=== PATIENT | male | born 1945 | race Caucasian/White ===

== ENCOUNTER 2021-09-24 15:05 | Observation (INO) | payer MEDICARE, SELFPAY ==
[2021-09-24] VITALS (11 sets, daily range): BP systolic 120–170; BP diastolic 78–105; PULSE 69–148; RESP 18–23; TEMP 36.4–37; O2SAT 93–99; BMI 26.4
--- NOTE | ~2021-09-24 | XR_ITS ---
EXAMINATION: XR chest 2V DATE: 09/24/2021 15:33 INDICATION: Midsternal chest pain TECHNIQUE: AP and lateral views of the chest are obtained. COMPARISON: 09/24/2010 FINDINGS: The lungs are free of acute opacities. There is no pleural effusion or pneumothorax. The ca rdiomediastinal silhouette is normal. There is moderate thoracic spondylosis. IMPRESSION: 1. No acute cardiopulmonary abnormality. Reviewed, dictated and finalized at location B. L HAULER
--- NOTE | ~2021-09-24 | CT_ITS ---
EXAMINATION: CT diagnostic chest wo con EXAM DATE: 09/25/2021 18:14 INDICATION: Chest pain of uncertain etiology TECHNIQUE: Spiral CT of the chest without contrast. Axial, coronal and sagittal images of the chest were reviewed. Coronal maximum intensity pixel images of chest reviewed. The dose-length product ( DLP) for this examination was 351.47 mGy-cm. The exposure was tailored according to patient size (au to mA exposure control), and iterative reconstruction (ASIR) was used as additional dose reduction te [place]nique. There is no prior study for comparison. FINDINGS: Several calcified right middle lobe granulomas. Bibasilar subsegmental atelectasis. There are no pleural or pericardial effusions. Tracheobronchial tree is patent. There is no mediastina l, hilar or axillary lymphadenopathy. There is no pneumothorax. Heart normal in size. There is mild coronary arterial calcification, arterial sclerosis. Gallbladder vicarious excretion of contras t. There is mild thoracic spondylosis without osteoblastic or osteolytic lesions identified. IMPRESSION: 1. Bibasilar subsegmental atelectasis. Reviewed, dictated and finalized at location A. PLATFORM SUPERVISOR
--- NOTE | ~2021-09-24 | CT_ITS ---
EXAMINATION: CT abdomen pelvis w con EXAM DATE: 09/24/2021 17:24 INDICATION: Abdominal pain.. TECHNIQUE: Spiral CT of the abdomen and pelvis was performed following intravenous injection of 100 m L Omnipaque 350. Axial, coronal and sagittal images of the abdomen and pelvis were reviewed. The do se-length product (DLP) for this examination was 572.34 mGy-cm. The exposure was tailored according to patient size (auto mA exposure control), and iterative reconstruction (ASIR) was used as additiona l dose reduction technique. Prior study from 2009 not retrieving at this time. 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 The liver, spleen, adrenal glands and pancrea s are unremarkable. Gallbladder is unremarkable. No biliary obstruction. Portal and splenic veins are patent. Kidneys enhance symmetrically. There is no hydronephrosis. Moderate prostatomegaly, p rostate measuring 4.8 x 6.4 cm. Small to moderate bilateral inguinal fat-containing hernias. The bakari dder is unremarkable. There is no retroperitoneal or pelvic lymphadenopathy. There is mild scatter ed arteriosclerotic disease. Small to moderate umbilical fat-containing hernia. There are no findings to suggest appendicitis. The stomach and small bowel are unremarkable. There is expected amount of colonic stool. No free intraperitoneal gas. The heart is normal in size. T here are no pericardial or pleural effusions. Right middle lobe calcified granulomas. There are no osteoblastic or osteolytic lesions identified. IMPRESSION: 1. No acute intra-abdominal findings. 2. Severe celiac origin stenosis. SMA and GILL widely patent. 3. Umbilical, inguinal fat-containing hernias. 4. Prostatomegaly. Reviewed, dictated and finalized at location A. ING CLERKS
--- NOTE | ~2021-09-24 | NM_ITS ---
EXAMINATION: NM nilson stress w perfusion DATE: 09/26/2021 13:08 INDICATION: Chest pain. TECHNIQUE: Rest images were obtained following intravenous administration of 10.2 mCi Tc99m tetrofosm in (Myoview). The patient was infused intravenously with Lexiscan (regadenoson). Then, 32.3 mCi Tc99m tetrofosmin (Myoview) was administered intravenously, and stress images were obtained. Data was jennifer nstructed into short axis and horizontal and vertical long axis SPECT images. Gated SPECT images were also obtained. COMPARISON: None. FINDINGS: There is no definite reversible or fixed perfusion abnormality to suggest ischemia or infar ction. There is no segmental wall motion abnormality. Left ventricular ejection fraction measures > 70%. IMPRESSION: 1. No definite ischemia or infarct. 2. Normal left ventricular ejection fraction measuring >70%. Reviewed, dictated and finalized at location A. RAL OFFICE INSTALLER
--- NOTE | 2021-09-24 15:08 | ECG_ITS ---
Measurements Intervals [place] Rate: 125 P: MO: 0 QRS: -9 QRSD: 114 T: 99 QT: 308 QTc: 445 Interpretive Statements ATRIAL FIBRILLATION WITH RAPID VENTRICULAR RESPONSE INTRAVENTRICULAR CONDUCTION DELAY DELAYED PRECORDIAL R/S TRANSITION BORDERLINE ST-T WAVE ABNORMALITY- INF/LAT LEADS BASELINE ARTIFACT- I, II, III, AVR, AVL, AVF ABNORMAL ECG Electronically Signed On 09-24-2021 15:16:43 GM [employer]LE by Benjie Barger D.O.
[2021-09-24 15:33] LABS: Basophils Absolute Auto 0.1 K/mm3 (0.0-0.1); Basophils Percent Auto 0.5 % (0.2-1.2); Eosinophils Percent Auto 0.1 % (0-4.4); Hematocrit 48.4 % (42.0-52.0); Hemoglobin 16.7 g/dL (14.0-18.0); Lymphocytes Absolute Auto 2.37 K/mm3 (0.9-3.2); Lymphocytes Percent Auto 12.2 % (18.3-44.2); Mean Corpuscular HGB Conc 34.5 g/dl (32-36); Mean Corpuscular Volume 92.7 fl (80-100); Mean Platelet Volume 9.2 fl (7.4-10.4); Monocytes Absolute Auto 1.1 K/mm3 (0.1-0.6); Monocytes Percent Auto 5.4 % (2.6-8.5); Neutrophils Absolute Auto 15.8 K/mm3 (1.3-6.7); Neutrophils Percent Auto 80.8 % (45.5-73.1); Platelet Count Result 386 k/mm3 (150-375); Red Blood Count 5.22 M/mm3 (4.6-6.20); Red Cell Distribution Width 13.1 % (11.5-14.5); White Blood Count 19.5 K/mm3 (4.5-10.0)
[2021-09-24 15:41] LABS: Partial Thromboplastin Time 25.4 SECONDS (22.3-36.8); Prothrombin Time 12.9 Seconds (11.1-14.7)
[2021-09-24] MEDS: ASPIRIN 81 MG CHEWABLE TABLET 324 MG PO (16:03)
--- NOTE | 2021-09-24 16:08 | ECG_ITS ---
Measurements Intervals [place] Rate: 116 P: PA: 0 QRS: 2 QRSD: 109 T: 103 QT: 334 QTc: 465 Interpretive Statements ATRIAL FIBRILLATION WITH RAPID VENTRICULAR RESPONSE NONSPECIFIC ST & T-WAVE ABNORMALITY- DIFFUSE LEADS BASELINE ARTIFACT- II, III ABNORMAL ECG Electronically Signed On 09-24-2021 20:08:29 INSURANCE PROCESSOR by Benjie Barger D.O.
--- NOTE | 2021-09-24 16:09 | PC.NURSE ---
Pt notes worsening cp. EDP notified. Repeat EKG ordered.
[2021-09-24 16:17] LABS: Anion Gap 15 mmol/L (8-16); Blood Urea Nitrogen 34 mg/dL (9-20); Carbon Dioxide 25 mmol/L (22-30); Chloride 101 mmol/L (98-107); Estimated CRCL calculation 33 ml/min; Estimated Glomerular Filt Rate 37; Glucose 222 mg/dL (65-110); Potassium 4.1 mmol/L (3.4-5.0); Sodium 141 mmol/L (137-145)
[2021-09-24 16:28] LABS: Troponin I 0.023 ng/mL (0.000-0.034)
[2021-09-24] MEDS: ONDANSETRON INJ 4 MG/2 ML VIAL IV PUSH (16:50)
[2021-09-24] MEDS: MORPHINE SULFATE (*CRX) 4 MG/ML INJ IV PUSH (16:50)
[2021-09-24] MEDS: SODIUM CHLORIDE 0.9% IV 1,000 ML 150 ML IV CONT (16:51)
[2021-09-24] MEDS: dilTIAZem HCl INJ 25 MG/5 ML VIAL 15 MG IV PUSH (17:05)
--- NOTE | 2021-09-24 18:34 | ED.CHESTPAIN ---
HPI - Chest Pain General Chief Complaint: Chest Pain Stated Complaint: CP, SOB Time Seen by Provider: 09/24/21 16:16 Source: patient and family Mode of arrival: ambulatory Limitations: no limitations History of Present Illness HPI narrative: 76-year-old with a history of hypertension, CAD, osteoarthritis of the knee, diabetes , here with complaints of chest pain for past 1-1/2-hour. Patient also states that he is having difficulty in breathing. He denies any cough, fever or chills. Patient's states that he was constipated yesterday took some laxatives with very minimal result. He denies any other complaints. Patient also reports that he was started on prednisone for his knee. No previous history of atrial fibrillation and his senior health consultant is Dr. Bhandari in [place] Related Data Home Medications Medication Instructions Recorded Confirmed empagliflozin [Jardiance] mg 09/24/21 insulin detemir U-100 [Levemir unit SUBCUT 09/24/21 FlexTouch U-100 Insuln] levothyroxine [Euthyrox] 09/24/21 losartan 09/24/21 lovastatin mg 09/24/21 09/24/21 metformin mg 09/24/21 metoprolol succinate PO 09/24/21 pen needle, diabetic [BD 09/24/21 09/24/21 Ultra-Fine Mini Pen Needle] tramadol mg 09/24/21 Allergies Allergy/AdvReac Type Severity Reaction Status Date / Time No Known Drug Allergies Allergy Mild Verified 09/24/10 23:48 Review of Systems Review of Systems: All systems reviewed & are unremarkable except as noted in HPI and below Constitutional: Constitutional: Reports no additional constitutional complaints Eyes: Eyes: Reports no additional eye complaints ENT: Reports system reviewed and no additional complaints, except as documented Cardiovascular: Cardiovascular: Reports as per HPI Respiratory: Respiratory: Reports as per HPI Gastrointestinal: Gastrointestinal: Reports no additional gastrointestinal complaints Musculoskeletal: Musculoskeletal: Reports no additional musculoskeletal complaints Integumentary/Breasts: Skin/Breast: Reports system reviewed and no additional complaints, except as docu Neurologic: Reports system reviewed and no additional complaints, except as documented [facility] Family History Family History Father Cerebrovascular accident Mother Family history of pancreatic cancer Social History Social History Smoking status: Never smoker Alcohol intake: never Exam Narrative: GENERAL: Well-appearing, well-nourished, and in no acute distress, anxious and very hard of hearing HEAD: Normocephalic, atraumatic. EYES: PERRLA and EOMI. ENT: Nares clear, no rhinorrhea or epistaxis. Mucous membranes moist. NECK: Supple. CHEST: Clear to auscultation. No respiratory distress. HEART: Regular rate and rhythm. No murmur heard. Normal peripheral pulses. ABDOMEN: Soft, nontender, nondistended, normal active bowel sounds. EXTREMITIES: Normal range of motion. No edema. SKIN: Warm, dry, no rash. NEURO: No focal deficits. Alert and oriented x3. PSYCH: Normal mood and affect. Course Course Emergency Course: Patient upon arrival was very anxious and he was in A. fib with RVR which is new to him. His heart rate was in 130s and 140 . I did give him IV morphine and Zofran for pain which helped him. I also did give Cardizem 15 which brought his heart rate down to 83-96 range. Informed patient about his lab work, chest x-ray and CT of the abdomen. Because of his elevated white count most likely could be from prednisone. Vital Signs Vital signs: Vital Signs Temperature 36.4 C 09/24/21 15:15 Pulse Rate 93 09/24/21 15:15 Respiratory Rate 18 09/24/21 15:15 Blood Pressure 139/78 09/24/21 15:15 Pulse Oximetry 93 09/24/21 15:15 Temperature 36.4 C 09/24/21 15:15 Pulse Rate 80 09/24/21 17:38 Respiratory Rate 21 H 09/24/21 17:38 Blood
[2021-09-24] MEDS: ENOXAPARIN 100 MG/ML SYRINGE 85 MG SUB-Q (20:14)
[2021-09-24 20:26] LABS: Troponin I 0.015 ng/mL (0.000-0.034)
--- NOTE | 2021-09-24 21:44 | ADMGEN ---
This patient, Galileo Myers, was admitted to IMU Room 205-01 on 09/24/21 at 2130. Patient/family oriented to hospital policies and general routines including ID bracelet, bed and alarms, visiting hours, pain management, procedures, bathroom and other care routines, personal items, smoking policy, room service/diet, and visiting hours. Information on how to activate the Rapid Response Team has been discussed. Patient/Family are encouraged to report perceived risks to care and to ask questions if they do not understand what they are told or what they should do.
[2021-09-24 22:13] LABS: Glucose Point of Care 218 mg/dl (65-105)
[2021-09-24] MEDS: MORPHINE SULFATE (*CRX) 2 MG/ML INJ IV PUSH (22:31)
--- NOTE | 2021-09-24 22:38 | PCRCNOTE ---
PT wears one at home but stated they dont want to wear one of ours. They stated they most likely will not sleep tonight and it will just bother them.
--- NOTE | 2021-09-24 23:11 | PM.IMHP ---
H&P: HPI History of Present Illness Date/Time: 09/24/21 23:11 this is a 68 year old male patient who resides with his . He has a history of hypertension, coronary artery disease with a coronary stent, osteoarthritis, diabetes. The patient has no prior history of atrial fibrillation. Patient's heart rate was in the 140s in above. We did start him on a Cardizem drip and now is heart rate 69. The patient stated that he has chest pain when his heart rate goes up. The patient was given nitroglycerin in the emergency room. The 1st troponin was negative. The patient was found to be in AFib with RVR. His white count is 19.5. Platelets 386. Neutrophil 80.8. Creatinine is 1.8 with a creatinine 1.5 noted on 09/26/2018. Baseline unknown. Patient's initial blood sugar was 222. Patient was saying that he felt that his blood sugar was low and had not eaten all day so I gave him some crackers and milk. Accu-Chek was 218. Second troponin was negative as well. Third troponin is pending. The patient is being admitted to inpatient services on the date of service of 09/24/2021 Chief Complaint: Chest pain Review of Systems Review of Systems: All systems reviewed & are unremarkable except as noted in HPI and below Constitutional: Constitutional: Reports as per HPI and Reports no additional constitutional complaints Eyes: Eyes: Reports as per HPI and Reports no additional eye complaints ENT: Reports system reviewed and no additional complaints, except as documented and Reports Normal hearing present Cardiovascular: Cardiovascular: Reports no additional cardiovascular complaints Respiratory: Respiratory: Reports no additional respiratory complaints and Reports no additional respiratory complaints Gastrointestinal: Gastrointestinal: Reports as per HPI and Reports no additional gastrointestinal complaints Musculoskeletal: Musculoskeletal: Reports no additional musculoskeletal complaints Integumentary/Breasts: Skin/Breast: Reports system reviewed and no additional complaints, except as docu and Reports as per HPI Neurologic: Reports system reviewed and no additional complaints, except as documented, Reports as per HPI and Reports Normal hearing present Psychiatric: Psychiatric: Reports no additional psychiatric complaints and Reports as per HPI Endocrine: Endocrine: Reports no additional endocrine complaints Hematologic/Lymphatic: Hematologic/Lymphatic: Reports no additional hematologic/lymphatic complaints Allergic/Immunologic: Allergic/Immunologic: Reports no additional allergic/immunologic complaints REPLACED BY [facility] Past Medical History Medical History (Updated 09/24/21 @ 23:31 by Olga Keith NP) Chronic renal failure, stage 3 (moderate) Diabetes mellitus H/O gastroesophageal reflux (GERD) HTN (hypertension), benign Hyperlipidemia Hypothyroidism Surgical History Surgical History (Updated 09/24/21 @ 23:31 by Olga Keith NP) H/O bilateral cataract extraction H/O local excision of skin lesion History of coronary artery stent placement X1 S/P ORIF (open reduction internal fixation) fracture left leg Family History Family History Father Cerebrovascular accident Mother Family history of pancreatic cancer Social History Social History (Updated 09/24/21 @ 23:32 by Olga Keith NP) Social History: The patient lives with his . She has 6 children. 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 Lifelong nonsmoker. Does not use any alcohol marijuana or illicit drugs. 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 Code status full code Smoking status: Never smoker Alcohol intake: never Substance use: never Spiritual care concerns: No Meds Home Medications and Allergies Home Medications Medication Instructions Recorded Confirmed Type empagliflozin [Jardiance] mg 09/24/21 History insulin detemir U-100 [Levemir unit SUBCUT 09/24/21
[2021-09-24 23:38] LABS: Troponin I 0.012 ng/mL (0.000-0.034)
[2021-09-25] VITALS (18 sets, daily range): BP systolic 102–193; BP diastolic 56–101; PULSE 61–87; RESP 16–20; TEMP 36–37.3; O2SAT 97–100
--- NOTE | 2021-09-25 | ECHO_ITS ---
Patient Info Name: Galileo Myers Age: 76 years : 1945 Gender: Male Ht: 71 in Wt: 189 lbs BSA: 2.08 m2 HR: 72 bpm BP: 137 / 72 mmHg Heart Rhythm: Sinus Rhythm Technical Quality: Good Exam Date: 09/25/2021 10:45 AM Exam Location: [facility] Patient Status: Inpatient Admit Date: 09/24/2021 Staff Ordering Physician: Victor M Gregorio MD Bridge Ironworker Helper: Cara Resendez RDCS Attending Provider: Opal Lynne MD Exam Type: CA echo doppler color flow Study Info Indications - NEW ONSET AFIB Complete two-dimensional, color flow and Doppler transthoracic echocardiogram is performed. Summary 1. Complete two-dimensional, color flow and Doppler transthoracic echocardiogram is performed. 2. Left ventricular chamber size and systolic function are normal with no regional wall motion abnormalities with an estimated ejection fraction of 60-65%. Mild left ventricular hypertrophy and diastolic dysfunction are present. 3. Left atrial chamber dimension is mildly enlarged. 4. There is mild mitral valve regurgitation. 5. There is mild tricuspid valve regurgitation. 6. No pulmonary hypertension, estimated pulmonary arterial systolic pressure is 32 mmHg. 7. Normal sinus rhythm. Left Ventricle Left ventricular chamber dimension is normal. Left ventricular systolic function is normal, estimated at 60-65%. There is mildly increased left ventricular wall thickness. Left ventricular septal wall motion is normal. The left ventricular diastolic function is grade II diastolic dysfunction. Left ventricular chamber size and systolic function are normal with no regional wall motion abnormalities with an estimated ejection fraction of 60-65%. Mild left ventricular hypertrophy and diastolic dysfunction are present. Right Ventricle Right ventricular chamber dimension is normal. Right ventricular systolic function is normal. Left Atria Left atrial chamber dimension is mildly enlarged. Right Atria Right atrial chamber dimension is normal. Aortic Valve The aortic valve is trileaflet. There is no aortic valve sclerosis. There is no aortic valve stenosis. There is no aortic valve regurgitation. Pulmonic Valve The pulmonic valve is normal. There is no pulmonic valve stenosis. There is no pulmonic regurgitation. Mitral Valve The mitral valve has thickened leaflets. There is no mitral valve stenosis. There is mild mitral valve regurgitation. The mitral valve annulus is mildly calcified. Tricuspid Valve The tricuspid valve leaflets are normal. There is no significant tricuspid valve stenosis. There is mild tricuspid valve regurgitation. No pulmonary hypertension, estimated pulmonary arterial systolic pressure is 32 mmHg. Pericardium/Pleural The pericardium appears normal. There is no pericardial effusion. Inferior Vena Cava Normal inferior vena cava with >50% collapse upon inspiration consistent with Empty right atrial pressure, 10 mmHg. Aorta The aortic root size at the sinus of Valsalva is normal. The prox ascending aorta size is normal. Left Ventricular Outflow Tract Name Value Normal LVOT 2D LVOT Diameter 2.1 cm LVOT Doppler
--- NOTE | 2021-09-25 00:06 | ECG_ITS ---
Measurements Intervals [place] Rate: 75 P: 47 AR: 178 QRS: -4 QRSD: 97 T: 95 QT: 395 QTc: 443 Interpretive Statements SINUS RHYTHM DELAYED PRECORDIAL R/S TRANSITION NONSPECIFIC ST & T-WAVE ABNORMALITY- ANT/HIGH LAT LEADS BORDERLINE ECG Electronically Signed On 09-25-2021 8:51:37 CONTINUOUS IMPROVEMENT COORDINATOR by Benjie Barger D.O.
[2021-09-25] MEDS: METOPROLOL SUCCINATE EXT REL 100 MG TABCR PO (01:10)
[2021-09-25 05:19] LABS: Basophils Absolute Auto 0.1 K/mm3 (0.0-0.1); Basophils Percent Auto 0.3 % (0.2-1.2); Eosinophils Percent Auto 0.1 % (0-4.4); Hematocrit 42.8 % (42.0-52.0); Hemoglobin 14.7 g/dL (14.0-18.0); Immature Granulocyte Absolute 0.18 K/mm3 (0.00-0.031); Lymphocytes Absolute Auto 2.65 K/mm3 (0.9-3.2); Mean Corpuscular HGB Conc 34.3 g/dl (32-36); Mean Corpuscular Hemoglobin 31.4 pg (26-34); Mean Corpuscular Volume 91.5 fl (80-100); Mean Platelet Volume 9.4 fl (7.4-10.4); Monocytes Absolute Auto 1.2 K/mm3 (0.1-0.6); Monocytes Percent Auto 6.7 % (2.6-8.5); Neutrophils Absolute Auto 13.6 K/mm3 (1.3-6.7); Neutrophils Percent Auto 76.9 % (45.5-73.1); Platelet Count Result 346 k/mm3 (150-375); Red Blood Count 4.68 M/mm3 (4.6-6.20); Red Cell Distribution Width 13.2 % (11.5-14.5); White Blood Count 17.7 K/mm3 (4.5-10.0)
[2021-09-25 05:34] LABS: Hemoglobin A1C 7.2 % (<5.7)
[2021-09-25 05:47] LABS: Alanine Aminotransferase 26 U/L (4-50); Albumin Level 4.2 g/dL (3.5-5.1); Alkaline Phosphatase 68 U/L (38-126); Anion Gap 13 mmol/L (8-16); Aspartate Amino Transferase 21 U/L (17-59); Bilirubin,Total 0.7 mg/dL (0.2-1.3); Blood Urea Nitrogen 39 mg/dL (9-20); Calcium 8.9 mg/dL (8.4-10.2); Carbon Dioxide 23 mmol/L (22-30); Chloride 101 mmol/L (98-107); Estimated CRCL calculation 31 ml/min; Estimated Glomerular Filt Rate 34; Glucose 210 mg/dL (65-110); Lactate Dehydrogenase 299 U/L (313-618); Magnesium 3.1 mg/dL (1.6-2.3); Potassium 4.5 mmol/L (3.4-5.0); Sodium 137 mmol/L (137-145)
[2021-09-25] MEDS: LEVOTHYROXINE SODIUM 112 MCG TABLET PO (06:02)
[2021-09-25 06:23] LABS: Thyroid Stimulating Hormone Reflex 0.655 uIU/mL (0.465-4.68)
--- NOTE | 2021-09-25 08:47 | PM.IMPN ---
Progress Note: A&P Assessment and Plan (1) Atrial fibrillation with rapid ventricular response: Code(s): I48.91 - Unspecified atrial fibrillation Status: Acute Assessment and Plan: Patient was started on Cardizem drip and his heart rate is in the 60s now. The patient had been on metoprolol at home. However he is now placed on a Cardizem drip. Cardiology has been consulted. This is new onset atrial fibrillation. Patient was started on subcu Lovenox. The patient's chads Vasc score is 6 and the patient is high risk for stroke. Will transition the patient with p.o. diltiazem in addition to his home metoprolol. An echo has been ordered for the patient. Defer decision to start chronic anticoagulation to Cardiology. We believe the patient would benefit from chronic anticoagulation; given his poor kidney function he will be a candidate for initiation of Coumadin. Obtain recent colonoscopy reports. (2) Chest pain: Qualifiers: Chest pain type: unspecified Qualified Code(s): R07.9 - Chest pain, unspecified Code(s): R07.9 - Chest pain, unspecified Status: Acute Assessment and Plan: Patient has a history of having a coronary stent. Troponins are negative so far. Currently patient is asymptomatic. (3) Hyperlipidemia: Code(s): E78.5 - Hyperlipidemia, unspecified Status: Chronic Assessment and Plan: The patient is on lovastatin. Continue statin. (4) Chronic renal failure, stage 3 (moderate): Code(s): N18.30 - Chronic kidney disease, stage 3 unspecified Status: Chronic Assessment and Plan: Unknown baseline creatinine. On admission creatinine was 1.8. Last creatinine in our records from 09/26/2018 was 1.5. Continue to monitor and hold metformin for now. Hold losartan for now (5) HTN (hypertension), benign: Code(s): I10 - Essential (primary) hypertension Status: Chronic Assessment and Plan: Blood pressure at goal at 137/72. Given poor renal function, hold losartan for now. (6) Hypothyroidism: Code(s): E03.9 - Hypothyroidism, unspecified Status: Chronic Assessment and Plan: Continue with levothyroxine ; the TSH level has been ordered and is pending at the time of this dictation. (7) Diabetes mellitus: Code(s): E11.9 - Type 2 diabetes mellitus without complications Status: Chronic Assessment and Plan: Accu-Cheks AC and HS. Fasting blood sugar was 210. Accu-Chek was 218. Continue close blood sugar monitoring. Hemoglobin A1c close to goal at 7.2. (8) CAD (coronary artery disease): Code(s): I25.10 - Atherosclerotic heart disease of [place] coronary artery without angina pectoris Status: Acute Assessment and Plan: The patient has 1 coronary stent. Continue aspirating. Resume metoprolol per Cardiology recommendation. Continue statin. Patient recalls a history of CHF. Currently he is asymptomatic. There is no evidence of chest congestion or peripheral edema. We will obtain an echocardiogram and continue close clinical monitoring with daily BMP, it in and out, daily weight. Subjective Date/time seen: 09/25/21 08:47 S: Patient was examined at the bedside. He denies any acute complaints. There was no evidence of distress. Review of Systems Review of Systems: All systems reviewed & are unremarkable except as noted in HPI and below Constitutional: Constitutional: Reports as per HPI and Reports no additional constitutional complaints Eyes: Eyes: Reports as per HPI and Reports no additional eye complaints ENT: Reports system reviewed and no additional complaints, except as documented and Reports Normal hearing present Cardiovascular: Cardiovascular: Reports no additional cardiovascular complaints Respiratory: Respiratory: Reports no additional respiratory complaints and Reports no additional respiratory complaints Gastrointestinal: Gastrointestinal: Reports as per HP
[2021-09-25 08:59] LABS: Glucose Point of Care 189 mg/dl (65-105)
[2021-09-25] MEDS: OMEGA 3 POLYUNSAT FATTY ACIDS 1 GM CAP PO (09:17)
[2021-09-25] MEDS: VITAMIN B COMPLEX CAPSULE 1 CAP PO ×2 (09:17→17:06)
[2021-09-25] MEDS: LORATADINE 10 MG TABLET PO (09:17)
--- NOTE | 2021-09-25 09:45 | PM.CNCAR ---
Assessment and Plan Additional Plan -paroxysmal atrial fibrillation, new onset -history of coronary artery disease with stent 2004 -hypertension -diabetes This 76-year-old patient who presents to the hospital chest pain shortness breath was found to be in AFib with RVR. Started on IV diltiazem and converted to sinus rhythm. Chads Vasc score 3. -continue Toprol-XL 100 mg daily. -start diltiazem 120 mg in the evening. -discontinue Lovenox. -Start Eliquis-5 mg b.i.d. -echo echocardiogram -continue aspirin. -monitor overnight to see if he tolerates diltiazem. History of Present Illness History of Present Illness Consult date/time: Date of service 09/25/21 09:45 Requesting physician: Victor M Gregorio MD Consult reason: chest pain Reason For Visit: New Onset Afib w/ RVR Narrative: This 76-year-old patient with past medical history of CAD with stents, diabetes, hypothyroidism, hypertension, hyperlipidemia. He follows up at [facility]. Patient was brought to the hospital because of chest pain, shortness of breath and was found to have AFib with RVR with heart rate 140 beats per minute. Apparently he converted to sinus rhythm around midnight. Currently feels much better and denies chest pain or shortness of breath, lower limb oedema, dizziness, syncope. Does not drink alcohol and does not smoke. 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 Initial EKG showed AFib with RVR, some ST depression in lead 1, V5 and V6. Repeat EKG this morning shows sinus rhythm with no ischemia. Review of Systems Constitutional: Constitutional: Denies chills, Denies fever(s) and Denies poor appetite Eyes: Eyes: Denies eye discharge, Denies loss of vision, Denies eye pain and Denies photophobia ENT: Denies dizziness, Denies epistaxis, Denies nasal congestion and Denies sore throat Cardiovascular: Cardiovascular: Reports chest pain, Denies syncope, Denies pedal edema, Denies leg edema, Denies palpitations, Reports dyspnea, Reports dyspnea on exertion and Denies orthopnea Respiratory: Respiratory: Denies cough, Reports dyspnea, Reports dyspnea on exertion and Denies wheezing Gastrointestinal: Gastrointestinal: Denies abdominal pain, Denies diarrhea, Denies nausea and Denies vomiting Genitourinary: Genitourinary: Denies hematuria, Denies genital lesions and Denies dysuria Musculoskeletal: Musculoskeletal: Denies arthralgias, Denies joint swelling and Denies numbness Integumentary/Breasts: Skin/Breast: Denies pruritus and Denies rash Neurologic: Denies dizziness, Denies syncope, Denies loss of vision and Denies numbness Psychiatric: Psychiatric: Denies anxiety and Denies depression Endocrine: Endocrine: Denies cold intolerance, Denies heat intolerance and Denies palpitations Hematologic/Lymphatic: Hematologic/Lymphatic: Denies easy bleeding and Denies easy bruising Allergic/Immunologic: Allergic/Immunologic: Denies urticaria and Denies wheezing PMFSH Past Medical History Medical History Chronic renal failure, stage 3 (moderate) Diabetes mellitus H/O gastroesophageal reflux (GERD) HTN (hypertension), benign Hyperlipidemia Hypothyroidism Surgical History Surgical History H/O bilateral cataract extraction H/O local excision of skin lesion History of coronary artery stent placement X1 S/P ORIF (open reduction internal fixation) fracture left leg Family History Family History Father Cerebrovascular accident Mother Family history of pancreatic cancer Social History Social History Social History: The patient
[2021-09-25 11:46] LABS: Glucose Point of Care 232 mg/dl (65-105)
[2021-09-25] MEDS: APIXABAN 2.5 MG TABLET PO ×2 (12:44→20:39)
[2021-09-25] MEDS: INSULIN ASPART (*BKC) 100 UNITS/ML SUB-Q ×2 (12:44→17:05)
--- NOTE | 2021-09-25 13:10 | PC.NURSE ---
On 09/25/21, the student, [Francine Conklin], provided care and completed [facility] documentation on this patient. I have reviewed the student's documentation and agree with the findings.
--- NOTE | 2021-09-25 14:01 | ECG_ITS ---
Measurements Intervals [place] Rate: 70 P: 65 DC: 174 QRS: 12 QRSD: 104 T: 61 QT: 385 QTc: 417 Interpretive Statements SINUS RHYTHM WITH SINUS ARRHYTHMIA NONSPECIFIC ST & T-WAVE ABNORMALITY- ANTEROLAT/HIGH LAT LEADS BORDERLINE ECG Electronically Signed On 09-25-2021 19:43:13 [employer] by Benjie Barger D.O.
[2021-09-25] MEDS: NITROGLYCERIN SL 0.4 MG TABLET SUBLINGUAL ×2 (14:16→14:26)
--- NOTE | 2021-09-25 14:44 | ECG_ITS ---
Measurements Intervals [place] Rate: 67 P: 59 ND: 168 QRS: 2 QRSD: 106 T: 54 QT: 390 QTc: 412 Interpretive Statements SINUS RHYTHM WITH MARKED SINUS ARRHYTHMIA BORDERLINE ST ABNORMALITY- ANT/HIGH LAT LEADS BORDERLINE ECG Electronically Signed On 09-25-2021 19:45:53 [employer] by Benjie Barger D.O.
[2021-09-25] MEDS: MORPHINE SULFATE (*CRX) 2 MG/ML INJ IV PUSH (14:50)
--- NOTE | 2021-09-25 15:29 | PM.EVENT ---
Event Note Event Note Event Note: Called to see patient who is complaining of chest pain which started around 1:40 p.m. as a pressure in the lower chest area making it hard to breathe. Similar to the chest discomfort he had in the emergency room yesterday. Nonpleuritic, nontender. Did not respond to nitro x2 or morphine IV push. No nausea, radiation to the back, diaphoresis, history of blood clots, pain in the legs. On exam the patient is not in any respiratory distress and is non diaphoretic. He appears concerned and uncomfortable. at the bedside. Heart is regular rate and rhythm, lungs are clear, no chest wall tenderness, no rub or gallop. No lower extremity edema. SBP 170's. Two EKGs have done this afternoon both personally reviewed showed sinus rhythm with minor nonspecific ST changes. Yesterday's chest x-ray and CT scan reviewed. Aorta did not appear enlarged. Three troponins are negative so far. Impression: CP of uncertain etiology. No objective evidence of ischemia thus no need for emergent cardiac cath. Rec: Check troponins, metoprolol 5mg IVP for HTN, re-evaluate later.
[2021-09-25] MEDS: METOPROLOL TARTRATE INJ 5 MG/5 ML VIAL IV PUSH (15:45)
[2021-09-25 16:28] LABS: Troponin I < 0.012 ng/mL (0.000-0.034)
[2021-09-25 16:45] LABS: Glucose Point of Care 201 mg/dl (65-105)
[2021-09-25] MEDS: BELLADONNA ALK/PHENOB ELIX 10 ML, MAG HYDROX/ALUMINUM HYD/SIMETH 30 ML, LIDOCAINE HCL 2... PO (17:46)
[2021-09-25 19:22] LABS: Hematocrit 45.6 % (42.0-52.0); Mean Corpuscular HGB Conc 35.1 g/dl (32-36); Mean Corpuscular Hemoglobin 32.1 pg (26-34); Mean Corpuscular Volume 91.6 fl (80-100); Mean Platelet Volume 9.2 fl (7.4-10.4); Platelet Count Result 328 k/mm3 (150-375); Red Blood Count 4.98 M/mm3 (4.6-6.20); Red Cell Distribution Width 12.6 % (11.5-14.5); White Blood Count 14.7 K/mm3 (4.5-10.0)
[2021-09-25 19:33] LABS: Alanine Aminotransferase 30 U/L (4-50); Albumin Level 4.8 g/dL (3.5-5.1); Alkaline Phosphatase 75 U/L (38-126); Anion Gap 12 mmol/L (8-16); Aspartate Amino Transferase 26 U/L (17-59); Bilirubin,Total 0.8 mg/dL (0.2-1.3); Blood Urea Nitrogen 40 mg/dL (9-20); Calcium 9.6 mg/dL (8.4-10.2); Carbon Dioxide 23 mmol/L (22-30); Chloride 98 mmol/L (98-107); Estimated CRCL calculation 35 ml/min; Estimated Glomerular Filt Rate 39; Glucose 175 mg/dL (65-110); Magnesium 2.6 mg/dL (1.6-2.3); Phosphorus 3.3 mg/dL (2.5-4.5); Potassium 4.2 mmol/L (3.4-5.0); Sodium 133 mmol/L (137-145)
[2021-09-25 19:41] LABS: Lactic Acid Reflex 1.4 mmol/L (0.7-2.1)
[2021-09-25 19:43] LABS: Troponin I < 0.012 ng/mL (0.000-0.034)
[2021-09-25] MEDS: HYDROmorphone HCL INJ (*CRX) 1 MG/ML SYR IV PUSH (19:47)
[2021-09-25] MEDS: PANTOPRAZOLE SODIUM IV 40 MG VIAL IV PUSH (19:47)
--- NOTE | 2021-09-25 20:09 | PC.NURSE ---
This afternoon at approximately 14:00 patient began experiencing chest pressure and tightness. Nitro given x2 and then morphine given. EKG obtained and cardiology (Stacey Carrasco NP) notified. EKG shown to MALLY Ibarra and she notified Dr. Ramos who came to assess the patient. Dr. Ramos updated on patient status and vital signs. BP significantly elevated. Dr. Ramos ordered IVP Metoprolol x1 dose and this medication was administered. All subsequent orders by Dr. Ramos were carried out including a STAT CT Chest and GI cocktail administration. Patient continued to have increasing chest pain and pressure. Troponins continue to result negative. Dr. Ramos ordered NM scan for a.m. As evening progresses, patients chest pressure/tightness persists and pain level increases. Dr. Lynne notified and Dilaudid x1 dose requested by this RN. Dr. Lynne stated she was no longer present at the hospital and asked for this RN to contact Dr. Kapoor to have him assess the patient in person. Dr. Kapoor stated It is now 18:50. Dr Vazquez is on in 10 minutes and will be with the patient throughout the night. I will send her to assess the patient as soon as she arrives. Dr. Vazquez came to assess the patient and was updated on the patients condition and events of the day including interventions performed thus far. Dr. Vazquez stated to give the patient a x1 dose of IVP Dilaudid as well as a x1 dose of IVP Protonix. Medications administered. Report given to JESICA Hernandez at shift report.
[2021-09-25] MEDS: FAMOTIDINE 20 MG TABLET PO (20:39)
[2021-09-25] MEDS: LOSARTAN POTASSIUM 50 MG TABLET PO (20:40)
[2021-09-25] MEDS: LOVASTATIN 20 MG TABLET 40 MG PO (20:40)
[2021-09-25] MEDS: ASPIRIN 81 MG ENTERIC TABLET PO (20:40)
[2021-09-25 22:21] LABS: Troponin I < 0.012 ng/mL (0.000-0.034)
[2021-09-26] VITALS (15 sets, daily range): BP systolic 91–178; BP diastolic 50–86; PULSE 61–77; RESP 15–24; TEMP 36.2–36.9; O2SAT 95–100
[2021-09-26] MEDS: LEVOTHYROXINE SODIUM 112 MCG TABLET PO (05:48)
--- NOTE | 2021-09-26 08:46 | PM.IMPN ---
Progress Note: A&P Assessment and Plan (1) Atrial fibrillation with rapid ventricular response: Code(s): I48.91 - Unspecified atrial fibrillation Status: Acute Assessment and Plan: This is new onset atrial fibrillation. Patient was started on Cardizem drip and his heart rate was controlled. Patient was transitioned to diltiazem 120 mg p.o. daily. The patient had been on metoprolol at home. Patient was started on chronic anticoagulation with Eliquis 2.5 mg p.o. twice a day. Patient educated about the risk of bleeding. (2) Chest pain: Qualifiers: Chest pain type: unspecified Qualified Code(s): R07.9 - Chest pain, unspecified Code(s): R07.9 - Chest pain, unspecified Status: Acute Assessment and Plan: Patient has a history of having a coronary stent. Troponins are negative so far. Currently patient is asymptomatic. The patient has a normal Lexiscan today. This appears to be atypical chest pain. There was no costovertebral tenderness. It may related to anxiety or GI disease. Of note patient denies any prior GI symptoms. (3) Hyperlipidemia: Code(s): E78.5 - Hyperlipidemia, unspecified Status: Chronic Assessment and Plan: The patient is on lovastatin. Continue statin. (4) Chronic renal failure, stage 3 (moderate): Code(s): N18.30 - Chronic kidney disease, stage 3 unspecified Status: Chronic Assessment and Plan: Unknown baseline creatinine. On admission creatinine was 1.8. Creatinine has remained stable improving slightly to 1.7 yesterday. Last creatinine in our records from 09/26/2018 was 1.5. Continue to monitor and hold metformin for now. Hold losartan for now (5) HTN (hypertension), benign: Code(s): I10 - Essential (primary) hypertension Status: Chronic Assessment and Plan: Blood pressure is elevated at 169/81. Resume losartan upon discharge. Increase blood pressure may also be related to paroxysmal chest pain. (6) Hypothyroidism: Code(s): E03.9 - Hypothyroidism, unspecified Status: Chronic Assessment and Plan: Continue with levothyroxine ; the TSH level 0.66. (7) Diabetes mellitus: Code(s): E11.9 - Type 2 diabetes mellitus without complications Status: Chronic Assessment and Plan: Accu-Cheks AC and HS. Accu-Chek [id number]. Continue close blood sugar monitoring. Hemoglobin A1c close to goal at 7.2. (8) CAD (coronary artery disease): Code(s): I25.10 - Atherosclerotic heart disease of [place] coronary artery without angina pectoris Status: Acute Assessment and Plan: The patient has 1 coronary stent. Continue aspirin. He was started on Eliquis for primary stroke prevention due to atrial fibrillation. Currently on p.o. Cardizem and metoprolol for rate control. Subjective Date/time seen: 09/26/21 08:46 S: Patient was examined at the bedside. He is symptoms free. He is feeling a lot better. Review of Systems Review of Systems: All systems reviewed & are unremarkable except as noted in HPI and below Constitutional: Constitutional: Reports as per HPI and Reports no additional constitutional complaints Eyes: Eyes: Reports as per HPI and Reports no additional eye complaints ENT: Reports system reviewed and no additional complaints, except as documented and Reports Normal hearing present Cardiovascular: Cardiovascular: Reports no additional cardiovascular complaints Respiratory: Respiratory: Reports no additional respiratory complaints and Reports no additional respiratory complaints Gastrointestinal: Gastrointestinal: Reports as per HPI and Reports no additional gastrointestinal complaints Musculoskeletal: Musculoskeletal: Reports no additional musculoskeletal complaints Integumentary/Breasts: Skin/Breast: Reports system reviewed and no additional complaints, except as docu and Reports as per HPI Neurologic: Reports system reviewed and no a
[2021-09-26] MEDS: OMEGA 3 POLYUNSAT FATTY ACIDS 1 GM CAP PO (09:44)
[2021-09-26] MEDS: LORATADINE 10 MG TABLET PO (09:44)
[2021-09-26] MEDS: VITAMIN B COMPLEX CAPSULE 1 CAP PO ×2 (09:44→16:09)
[2021-09-26] MEDS: APIXABAN 2.5 MG TABLET PO ×2 (09:44→20:23)
[2021-09-26 11:13] LABS: Glucose Point of Care 152 mg/dl (65-105)
[2021-09-26 13:04] LABS: Glucose Point of Care 241 mg/dl (65-105)
[2021-09-26] MEDS: MORPHINE SULFATE (*CRX) 2 MG/ML INJ IV PUSH (13:43)
[2021-09-26] MEDS: INSULIN ASPART (*BKC) 100 UNITS/ML SUB-Q (13:44)
--- NOTE | 2021-09-26 14:01 | PM.PNCARD ---
Progress Note: A&P Additional Plan 76-year-old man with: Atypical sounding chest pain, no evidence of acute coronary syndrome with biomarkers and negative Lexiscan nuclear stress test that was done a short time ago today. At this point this does not appear to require further cardiac assessment. He has been started on diltiazem and anticoagulation for paroxysmal atrial fib this should be continued. Patient can be discharged any time from my perspective outpatient follow-up will be arranged. Zaid Salamanca [facility] Subjective Date/time seen: date of service:09/26/21 14:01 Interval history: Follow-up visit in this 76-year-old man with: History of atrial fibrillation and remote history of coronary artery disease. Patient maintaining sinus rhythm today and is offering no significant complaints. Cease patient was seen in the stress test lab during Lexiscan nuclear stress test. Tolerated the Lexiscan injection without any problems. The nuclear results are negative there is no scintigraphic evidence of myocardial ischemia. Exam Const: General: comfortable and no acute distress Other: Tall elderly man no distress HENMT: Mouth: Yes moist mucous membranes Eyes: Sclera: sclerae normal Pupils: Equal, round and reactive pupils present Neck: Neck: supple and no JVD Resp: Effort & Inspection: normal respiratory effort Auscultation: clear to auscultation bilaterally Cardio: Rate: regular rate Rhythm: regular rhythm GI: GI Palp: Yes Soft to palpation Auscultation: normal bowel sounds Skin: General skin exam: normal color Neuro: Cognition (Neuro): normal cognition Extrem: General: normal to inspection Objective Data Vital Signs Vital Signs: Vital Signs - 24 hr 09/25/21 14:36 09/25/21 15:45 09/25/21 15:46 Temperature 36.8 C Pulse Rate 68 75 75 Respiratory Rate 20 16 Blood Pressure 177/100 H 185/94 H Pulse Oximetry 100 97 09/25/21 16:00 09/25/21 18:00 09/25/21 20:00 Temperature 36.0 C L Pulse Rate 67 74 65 Respiratory Rate 20 Blood Pressure 193/101 H Pulse Oximetry 100 09/25/21 22:00 09/25/21 23:53 09/26/21 00:00 Temperature 37.3 C Pulse Rate 61 63 77 Respiratory Rate 16 Blood Pressure 102/56 L Pulse Oximetry 99 09/26/21 02:00 09/26/21 04:00 09/26/21 06:00 Temperature 36.2 C L Pulse Rate 61 62 75 Respiratory Rate 18 Blood Pressure 91/50 L Pulse Oximetry 99 09/26/21 08:00 09/26/21 12:00 Temperature 36.9 C 36.6 C Pulse Rate 69 61 Respiratory Rate 18 24 H Blood Pressure 108/58 L 169/81 H Pulse Oximetry 96 96 Intake/Output Intake/Output: Intake & Output 09/23/21 09/24/21 09/25/21 09/26/21 23:59 23:59 23:59 23:59 Intake Total 400 Output Total 400 150 500 Balance -400 -150 -100 Meds/Results Medications: Active Medications Generic Name Dose Route Start Last Admin Trade Name Freq PRN Reason Stop Dose Admin Acetaminophen 650 mg 09/24/21 19:56 Acetaminophen 325 Mg Tablet PO Q4H PRN Pain Rated 4-6 Apixaban 2.5 mg 09/25/21 10:20 09/26/21 09:44 Apixaban 2.5 Mg Tablet PO 2.5 mg Q12HR JUANJOSE Administration Aspirin 81 mg 09/25/21 21:00 09/25/21 20:40 Aspirin 81 Mg Enteric Tablet PO 10/25/21 20:59 81 mg HS JUANJOSE Administration Dextrose 12.5 gm 09/24/21 23:08 Dextrose 50% 25 Gm/50 Ml Syringe IV PUSH PRN PRN Hypoglycemia Protocol Diltiazem HCl 120 mg 09/25/21 18:00 09/25/21 17:07 Diltiazem Hcl Cd 120 Mg Cap.Sa.24h PO 120 mg QPM JUANJOSE Administration Famotidine 20 mg 09/25/21 21:00 09/25/21 20:39 Famotidine 20 Mg Tablet PO 20 mg HS JUANJOSE Administration Fish Oil 1 gm 09/25/21 09:00 09/26/21 09:44 [place] 3 Polyunsat Fatty Acids 1 Gm Cap PO 1 gm QAM JUANJOSE Administration Glucagon 1 mg 09/24/21 23:08 Glucagon For Inj 1 Mg Vial IM PRN PRN Hypoglycemia Protocol Glucose 15 gm 09/24/21 23:08 Glucose Oral Gel 15 Gm Of Glucse In 37.
[2021-09-26] MEDS: METOPROLOL SUCCINATE EXT REL 100 MG TABCR PO (14:21)
[2021-09-26] MEDS: traMADol HCL (*CRX) 50 MG TABLET PO (16:08)
--- NOTE | 2021-09-26 17:16 | EST_ITS ---
Patient Info Name: Galielo Myers Age: 76 years : 1945 Gender: Male Ht: 71 in Wt: 179 lbs BSA: 2.02 m2 HR: 74 bpm BP: 119 / 78 mmHg Heart Rhythm: Sinus Rhythm Exam Date: 09/26/2021 11:50 AM Exam Location: [facility] Stress Patient Status: Inpatient Admit Date: 09/24/2021 Staff Ordering Physician: Lianet Ramos MD Attending Provider: Opal Lynne MD Exercise Technologist: Roxana Simpson CT Exercise Physician: Zaid Salamanca MD Exam Type: CA stress nilson w NM Study Info Indications R07.9 - Chest pain, unspecified A regadenoson stress test was performed. Summary 1. Normal sinus rhythm with left axis deviation. 2. No abnormal ST/T wave changes with exercise. 3. None. 4. Clinically and electrocardiographically negative Lexiscan stress test. 5. Abnormal ST segment depression consistent with myocardial ischemia. Protocol: Lexiscan Stress ECG Details Stage: REST Duration (min): 0 min : 54 sec HR (bpm): 72 SBP (mmHg): 119 DBP (mmHg): 78 Stage: REST Duration (min): 1 min : 38 sec HR (bpm): 72 SBP (mmHg): 119 DBP (mmHg): 78 Stage: STAGE 1 Duration (min): 1 min : 0 sec HR (bpm): 81 SBP (mmHg): 131 DBP (mmHg): 58 Stage: RECOVERY Duration (min): 1 min : 0 sec HR (bpm): 84 SBP (mmHg): 131 DBP (mmHg): 58 Stage: RECOVERY Duration (min): 2 min : 0 sec HR (bpm): 84 SBP (mmHg): 131 DBP (mmHg): 58 Stage: RECOVERY Duration (min): 2 min : 54 sec HR (bpm): 84 SBP (mmHg): 100 DBP (mmHg): 53 Rest HR: 72 bpm Peak HR: 90 bpm Rest Sys BP: 119 mmHg Peak Sys BP: 131 mmHg Max Pred HR: 142 bpm % Max Pred HR: 63 % Target HR: 121 bpm Max RPP: 11,790 bpm*mmHg BP Response: Normal blood pressure response Termination Reason: Completed protocol Cardiac Symptoms: None Total Time: 1 min : 0 sec Rest Leon BP: 78 mmHg Peak Leon BP: 58 mmHg Total Dose: 0.4 mg Resting ECG Normal sinus rhythm with left axis deviation. Stress ECG No abnormal ST/T wave changes with exercise. Arrhythmias None. Report Signatures
[2021-09-26] MEDS: ONDANSETRON INJ 4 MG/2 ML VIAL IV PUSH (17:32)
[2021-09-26 17:46] LABS: Glucose Point of Care 193 mg/dl (65-105)
[2021-09-26] MEDS: LOSARTAN POTASSIUM 50 MG TABLET PO (20:22)
[2021-09-26] MEDS: LOVASTATIN 20 MG TABLET 40 MG PO (20:22)
[2021-09-26] MEDS: ASPIRIN 81 MG ENTERIC TABLET PO (20:23)
[2021-09-26] MEDS: FAMOTIDINE 20 MG TABLET PO (20:23)
[2021-09-26] MEDS: HYDROmorphone HCL INJ (*CRX) 1 MG/ML SYR IV PUSH (21:10)
[2021-09-26 21:52] LABS: Glucose Point of Care 220 mg/dl (65-105)
[2021-09-26] MEDS: MAGNESIUM HYDROXIDE SUSP 30 ML UDC PO (21:54)
[2021-09-26] MEDS: INSULIN GLARGINE (*BKC) 100 UNITS/ML 54 UNITS SUB-Q (21:54)
[2021-09-27] VITALS (9 sets, daily range): BP systolic 103–118; BP diastolic 61–66; PULSE 59–66; RESP 15–21; TEMP 36.5–36.9; O2SAT 95–100
[2021-09-27] MEDS: LEVOTHYROXINE SODIUM 112 MCG TABLET PO (06:27)
[2021-09-27 08:18] LABS: Glucose Point of Care 185 mg/dl (65-105)
[2021-09-27] MEDS: METOPROLOL SUCCINATE EXT REL 100 MG TABCR PO (09:25)
[2021-09-27] MEDS: APIXABAN 2.5 MG TABLET PO (09:26)
[2021-09-27] MEDS: OMEGA 3 POLYUNSAT FATTY ACIDS 1 GM CAP PO (09:26)
[2021-09-27] MEDS: LORATADINE 10 MG TABLET PO (09:26)
[2021-09-27] MEDS: VITAMIN B COMPLEX CAPSULE 1 CAP PO (09:26)
--- NOTE | 2021-09-27 11:33 | WPDGICN ---
Assessment and Plan Assessment and plan (1) Chest pain: Qualifiers: Chest pain type: unspecified Qualified Code(s): R07.9 - Chest pain, unspecified Code(s): R07.9 - Chest pain, unspecified Status: Acute Assessment and Plan: resolved now, cardiac work up negative for ischemia he also had some reflux symptoms but improved now he can go home and we can schedule egd as outpatient, continue with pepcid for now (2) Atrial fibrillation with rapid ventricular response: Code(s): I48.91 - Unspecified atrial fibrillation Status: Acute Assessment and Plan: new diagnosis and wonder if could have cause some chest discomfort initially treated and started on blood thinner no more issues and cardiology on board (3) Chronic renal failure, stage 3 (moderate): Code(s): N18.30 - Chronic kidney disease, stage 3 unspecified Status: Chronic (4) HTN (hypertension), benign: Code(s): I10 - Essential (primary) hypertension Status: Chronic (5) Diabetes mellitus: Code(s): E11.9 - Type 2 diabetes mellitus without complications Status: Chronic (6) GERD (gastroesophageal reflux disease): Code(s): K21.9 - Gastro-esophageal reflux disease without esophagitis Status: Acute Assessment and Plan: pepcid for now egd as outpatient (7) Colon cancer screening: Code(s): Z12.11 - Encounter for screening for malignant neoplasm of colon Status: Acute Assessment and Plan: never had colonoscopy will schedule one as outpatient GI Consult Note Consult date/time: 09/27/21 11:33 Reason for consult: chest pain HPI: Galileo Myers is a 76 year old male with history of hypertension, coronary artery disease with a coronary stent, osteoarthritis, diabetes admitted 3 days ago with new onset of chest pain, also reflux with epigastric discomfort but no dysphagia. He was found to have atrial fibrillation with RVR treated by cardiology. He had cardiac work up without evidence of acute coronary syndrome with biomarkers and negative Lexiscan nuclear stress. Chest pain is resolved now and doing well. He would like to go home if possible, never had scopes. Review of Systems Constitutional: Constitutional: Denies chills Eyes: Eyes: Reports no additional eye complaints ENT: Reports Normal hearing present Cardiovascular: Cardiovascular: Reports chest pain Respiratory: Respiratory: Denies cough Gastrointestinal: Gastrointestinal: Denies vomiting Genitourinary: Genitourinary: Denies dysuria Musculoskeletal: Musculoskeletal: Denies neck pain Integumentary/Breasts: Skin/Breast: Denies dry skin Neurologic: Denies headache(s) Psychiatric: Psychiatric: Denies anxiety PMF Past Medical History Medical History (Updated 09/27/21 @ 11:40 by Adilson Laurent MD) Chronic renal failure, stage 3 (moderate) Colon cancer screening Diabetes mellitus GERD (gastroesophageal reflux disease) H/O gastroesophageal reflux (GERD) HTN (hypertension), benign Hyperlipidemia Hypothyroidism Surgical History Surgical History H/O bilateral cataract extraction H/O local excision of skin lesion History of coronary artery stent placement X1 S/P ORIF (open reduction internal fixation) fracture left leg Family History Family History Father Cerebrovascular accident Mother Family history of pancreatic cancer Social History Social History Social History: The patient lives with his . She has 6 children. 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 Lifelong nonsmoker. Does not use any alcohol marijuana or illicit drugs. 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 Code status full code Smoking status: Never smoker Alcohol intake: never Substance use: never Spiritual
[2021-09-27 12:12] LABS: Glucose Point of Care 136 mg/dl (65-105)
--- NOTE | 2021-09-27 13:07 | PM.DS ---
DS: Admitting Diagnosis Discharge Date 09/27/21 Admitting Diagnosis Atrial fibrillation with rapid ventricular rate Chest pain Hypertension Hyperlipidemia CKD Hypothyroidism Diabetes mellitus CAD DS: Discharge Diagnosis Discharge Diagnosis (1) Atrial fibrillation with rapid ventricular response: Code(s): I48.91 - Unspecified atrial fibrillation Status: Acute Assessment and Plan: This is new onset atrial fibrillation. Patient was started on Cardizem drip and his heart rate was controlled. Patient was transitioned to diltiazem 120 mg p.o. daily. The patient had been on metoprolol at home which will be continued. He was taking losartan 100 mg before coming into the hospital but the dose is decreased to 50 mg once a day considering his new medication with diltiazem. Patient was started on chronic anticoagulation with Eliquis 2.5 mg p.o. twice a day. Patient educated about the risk of bleeding. Cardiology recommendations appreciated. (2) Chest pain: Qualifiers: Chest pain type: unspecified Qualified Code(s): R07.9 - Chest pain, unspecified Code(s): R07.9 - Chest pain, unspecified Status: Acute Assessment and Plan: Patient has a history of having a coronary stent. Troponins are negative. Currently patient is asymptomatic. The patient has a normal Lexiscan today with no reversible ischemia. This appears to be atypical chest pain. Cardiology recommendations appreciated. Gastroenterology service has evaluated the patient as well and recommended to continue Pepcid. He will follow with Gastroenterology as an outpatient for consideration of upper GI endoscopy if he continued to have symptoms. (3) Hyperlipidemia: Code(s): E78.5 - Hyperlipidemia, unspecified Status: Chronic Assessment and Plan: The patient is on lovastatin. Continue statin. (4) Chronic renal failure, stage 3 (moderate): Code(s): N18.30 - Chronic kidney disease, stage 3 unspecified Status: Chronic Assessment and Plan: Unknown baseline creatinine. On admission creatinine was 1.8. Creatinine has remained stable improving slightly to 1.7. Last creatinine in our records from 09/26/2018 was 1.5. Continue to monitor and hold metformin for now. (5) HTN (hypertension), benign: Code(s): I10 - Essential (primary) hypertension Status: Chronic Assessment and Plan: He was on metoprolol and losartan before admission. He is started on a diltiazem 120 mg once a day in addition to his metoprolol. His dose of losartan was decreased to 50 mg from 100 mg with his blood pressure continue to be within acceptable range today. (6) Hypothyroidism: Code(s): E03.9 - Hypothyroidism, unspecified Status: Chronic Assessment and Plan: Continue with levothyroxine ; the TSH level 0.66. (7) Diabetes mellitus: Code(s): E11.9 - Type 2 diabetes mellitus without complications Status: Chronic Assessment and Plan: Accu-Cheks AC and HS. Accu-Chek [id number]. Continue close blood sugar monitoring. Hemoglobin A1c close to goal at 7.2. (8) CAD (coronary artery disease): Code(s): I25.10 - Atherosclerotic heart disease of [place] coronary artery without angina pectoris Status: Acute Assessment and Plan: The patient has 1 coronary stent. Continue aspirin. He was started on Eliquis for primary stroke prevention due to atrial fibrillation. Currently on p.o. Cardizem and metoprolol for rate control. 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 DS: Summary Hospital Course Hospital Course: As above Time Spent with Patient Time attestation: Total time spent providing and/or coordinating discharge services: > 35 minutes Exam Narrative: General awake and alert not in acute distress CVS S1-S2 no murmur irregular irregular heart rhythm Respiratory no wheezes or crepitation respiration nonlabored GI
--- NOTE | 2021-09-27 13:39 | PC.NURSE ---
Patient discharged to home at 1335. Education was provided on follow-up visits, home meds, and breathing precautions. Patient and spouse had no further questions at this time.
== END 2021-09-27 13:37 | disposition home or self-care (01) ==
LOC: ANHED 18:47 → ANHIMU 09-25 12:25
PROVIDERS: Emergency Medicine; Internal Medicine; Internal Medicine Cardiovascular Disease; Nurse Practitioner; Admitting Provider Internal Medicine; Emergency Provider Family Medicine; PCP Family Medicine; Visit Provider Internal Medicine Critical Care Medicine
DX: I48.91 Unspecified atrial fibrillation (principal); R07.9 Chest pain, unspecified; I12.9 Hypertensive chronic kidney disease with stage 1 through stage 4 chronic kidney disease, or unspecified chronic kidney disease; E78.5 Hyperlipidemia, unspecified; I25.10 Atherosclerotic heart disease of native coronary artery without angina pectoris; N18.30 Chronic kidney disease, stage 3 unspecified; E03.9 Hypothyroidism, unspecified; E11.22 Type 2 diabetes mellitus with diabetic chronic kidney disease; Z95.5 Presence of coronary angioplasty implant and graft; Z79.4 Long term (current) use of insulin
CPT/HCPCS: 36415; 71046; 71250; 74177; 78452; 80048; 80053; 82948; 83036; 83605; 83615; 83735; 84100; 84443; 84484; 85025; 85027; 85610; 85730; 93005; 93017; 93306; 96365; 96372; 96375; 96376; 99285; A9270; A9502; C9113; G0378; J0131; J1170; J1650; J1815; J2270; J2405; J2785; J7030; Q9967

== ENCOUNTER 2022-05-11 12:37 | Outpatient (CLI) | payer MEDICARE, SELFPAY | END 2022-05-11 12:38 | disposition home or self-care (01) | LOC: ANHAUDIO 12:38 | PROVIDERS: PCP Family Medicine; Visit Provider Family Medicine | DX: H90.3 Sensorineural hearing loss, bilateral (principal) | CPT/HCPCS: 92557; 92567 ==